=== PATIENT | female | born 1995 | race Caucasian/White ===

== ENCOUNTER 2017-08-02 23:57 | Emergency (ER) | payer OTHER ==
[~2017-08-02] VITALS: Ht 162.6 cm; Wt 88.5 kg
[~2017-08-02 23:57] MED LIST: ONE DAILY MULT1 EAC1 PO; TRAMADOL HCL50 MG PO
[2017-08-03] MEDS ORDERED: VENTOLIN HFA18 GM INH (00:31)
[2017-08-03] MEDS ORDERED: MYRBETRIQ25 MG PO (00:32)
[2017-08-03] MEDS ORDERED: ZOFRAN ODT4 MG PO (03:36)
[2017-08-03] MEDS ORDERED: PROTONIX40 MG PO (03:36)
== END 2017-08-03 03:50 | disposition home or self-care (01) ==
LOC: ED 23:57
DX: K29.00 Acute gastritis without bleeding (principal); J45.909 Unspecified asthma, uncomplicated; F17.200 Nicotine dependence, unspecified, uncomplicated; Z90.89 Acquired absence of other organs; Z79.899 Other long term (current) drug therapy
CPT/HCPCS: 76705; 80053; 81001; 83690; 84703; 85025; 96374; 96375; 99284; J1170; J2405; J7030

== ENCOUNTER 2019-08-15 22:45 | Emergency (ER) | payer OTHER ==
[~2019-08-15] VITALS: Ht 162.6 cm; Wt 90.7 kg
--- OUTSIDE RECORDS SUMMARY | ~2019-08-15 | XMS | Encounter Summary ---
Demographics + + + | Address | [address] | | | [place] [address] | + + + | Home Phone | | + + + | Preferred Language | Unknown | + + + | Marital Status | Single | + + + | Rastafarian Affiliation | Unknown | + + + | Race | Unknown | + + + | Ethnic Group | Unknown | + + + Author + + + | Author | [facility] | | | and [place] | + + + | Organization | [facility] | | | and [place] | + + + | Address | Unknown | + + + | Phone | Unavailable | + + + Support + + +---------+ + | Name | Relationship | Address | Phone | + + +---------+ + | Quinten Lion | ECON | Unknown | | + + +---------+ + Care Team Providers + +------+ + | Care Lever Miller Name | Role | Phone | + +------+ + | Geni Johnson NP | PCP | | + +------+ + Reason for Visit + + + | Reason | Comments | + + + | Care | | + + + Encounter Details +--------+---------+ + + + | Date | Type | Department | Care Team | Description | +--------+---------+ + + + | 06/06/ | Office | [facility] | Sidney Longoria | care | | 2019 | Visit | [facility] | [facility] [address] | following vaginal | | | | [facility] | [address] | delivery (Primary | | | | [address] | [place] [address] | Dx); Encounter for | | | | [address] [place], | [phone] | contraceptive | | | | [place] [address] | | management, | | | | [phone] | | unspecified type | +--------+---------+ + + + Social History + +-------+ +--------+------+ | Tobacco Use | Types | Packs/Day | Years | Date | | | | | Used | | + +-------+ +--------+------+ | Former Smoker | | | | | + +-------+ +--------+------+ + +---+---+---+ | Smokeless Tobacco: | | | | | Never Used | | | | + +---+---+---+ + + | Tobacco Cessation: Counseling Given: Yes | + + + + +---------+ + | Alcohol Use | Drinks/We | oz/Week | Comments | | | ek | | | + + +---------+ + | Not Currently | | | | + + +---------+ + + + + | Sex Assigned at | Date Recorded | | | | + + + | Not on file | | + + + + + + + | Job Start Date | Occupation | Industry | + + + + | Not on file | Not on file | Not on file | + + + + + + + + | Travel History | Travel Start | Travel End | + + + + + + | No recent travel history available. | + + documented as of this encounter Last Filed Vital Signs + + + + | Vital Sign | Reading | Time Taken | + + + + | Blood Pressure | 100/64 | 06/06/2019 1406 PDT | + + + + | Pulse | 74 | 06/06/2019 1406 PDT | + + + + | Temperature | - | - | + + + + | Respiratory Rate | - | - | + + + + | Oxygen Saturation | 100% | 06/06/20191405 PDT | + + + + | Inhaled Oxygen | - | - | | Concentration | | | + + + + | Weight | 89.8 kg (198 lb) | 06/06/20191405 PDT | + + + + | Height | - | - | + + + + | Body Mass Index | 33.99 | 04/27/2019 1100 PDT | + + + + documented in this encounter Progress Notes Carmel Durant, Wood Caulker - 06/06/2019 1340 PDT Subjective: Patient ID: Georgina Gandara is a 24 y.o. female HPI Georgina is a who presents for a visit. She is 6 weeks following a spontaneous vaginal delivery by: Dr. Lyon. course has been good. Baby is . Bleeding: no bleeding. Bowel function is normal. Bladder function is normal. Patient has been sexually active since delivery. Contraception method is: none. She is interested in beginning contraception today, and prefers: condoms. 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 The patient has not completed the HPV vaccination series. Buchanan Depression Scale: Total score 0 (06/06/191402) [ Printable questionnaire in Simplified Honduran, Traditional Honduran, Beninese, Niuean, Bernard ali, Persian, Ukrainian ] Interpretation of Total Score: < 8 = depression unlikely, 9 11 = possible depression (re- screen in 2 4 weeks), 12 13 = fairly high possibility of depression (monitor, support, e ducate, refer if needed), 14+ = probable depression (assess and treat by PCP or specialist) Positive score (1, 2 or 3) on question 10 = evaluate for suicidality 1. 1. Able To Laugh: 0-->as much as she always could (06/06/191402) 2. 2. Looked Forward: 0-->as much as she ever did (06/06/191402) 3. 3. Blamed Self: 0-->no, never (06/06/191402) 4. 4. Been Anxious: 0-->no, not at all (06/06/191402) 5. 5. [place] Panicky: 0-->no, not at all (06/06/191402) 6. 6. Things Getting On Top: 0-->no, has been coping as well as ever (06/06/191402) 7. 7. Difficulty Sleepin-->no, not at all (06/06/191402) 8. 8. Sad Or Miserable: 0-->no, not at all (06/06/191402) 9. 9.Cryin-->no, never (06/06/191402) 10. 10. Thought Of Harming Self: 0-->never (06/06/191402) Concerns noted: none Patient's medications, allergies, past medical, surgical, social and family histories were obtained and reviewed as appropriate. Review of Systems Constitutional: Negative for activity change, appetite change, chills, diaphoresis, fever a nd unexpected weight change. Respiratory: Negative for cough and shortness of breath. Cardiovascular: Negative for chest pain and leg swelling. Gastrointestinal: Negative for abdominal pain and blood in stool. Genitourinary: Negative for dyspareunia, dysuria, hematuria, menstrual problem, pelvic pain , vaginal bleeding, vaginal discharge and vaginal pain. Neurological: Negative for syncope, speech difficulty, weakness, numbness and headaches. Objective: BP 100/64 | Pulse 74 | Wt 89.8 kg (198 lb) | SpO2 100% | ? Yes | BMI 33.9 9 kg/m Physical Exam Constitutional: She is oriented to person, place, and time. She appears well-developed and well-nourished. Genitourinary: Vagina normal and uterus normal. Pelvic exam was performed with patient jasoni ne. There is no rash, tenderness, lesion or injury on the right labia. There is no rash, ten derness, lesion or injury on the left labia. Uterus is not enlarged and not tender. Cervix e xhibits no motion tenderness and no discharge. No erythema, tenderness or bleeding in the va zully. No foreign body in the vagina. No signs of injury around the vagina. No vaginal discha rge found. Neurological: She is alert and oriented to person, place, and time. Skin: Skin is warm and dry. Psychiatric: She has a normal mood and affect. Her behavior is normal. Judgment and thought content normal. Assessment/Plan: Georgina was seen today for care. Diagnoses and all orders for this visit: care following vaginal delivery - Overall doing well. Normal evaluation. - Counseled about exercise and nutrition. - Patient was advised regarding annual examinations, including pap smear frequency. - Follow up annually. Encounter for contraceptive management, unspecified type - Briefly discussed the risks and benefits of contraceptive options, including the pill, pa tch, ring, injection, implant, and IUD. - She is interested in tubal ligation and she plans to complete this in [place], condoms until then which are available without a prescription. I, Dr. Longoria, personally performed the services described in this documentation, as sc ribed by ANSHUL Voss in my presence, and it is both accurate and complete. Electron ically signed by Sidney Longoria MD at 06/13/2019 15:41 PDTClCarmel richey, Medical Ass istant - 06/06/2019 1340 PDT Ancillary Note Patient ID: Georgina Gandara is a 24 y.o. female She is 6 weeks following a spontaneous vaginal delivery by Dr. Lyon. BP 100/64 | Pulse 74 | Wt 89.8 kg (198 lb) | SpO2 100% | ? Yes | BMI 33.9 9 kg/m Review of Systems Constitutional: Negative for activity change, appetite change, chills, diaphoresis, fever a nd unexpected weight change. Respiratory: Negative for cough and shortness of breath. Cardiovascular: Negative for chest pain and leg swelling. Gastrointestinal: Negative for abdominal pain and blood in stool. Genitourinary: Negative for dyspareunia, dysuria, hematuria, menstrual problem, pelvic pain , vaginal bleeding, vaginal discharge and vaginal pain. Neurological: Negative for syncope, speech difficulty, weakness, numbness and headaches. Recommendations from Health Maintenance / Immunizations Due: Health Maintenance Due Topic Vaccine: Dtap/Tdap/Td (1 - Tdap) Specialty Comments on SnapShot: No specialty comments available. Patient Care Team: Geni Johnson NP as PCP - General Pap smear history: last pap: was normal. The patient denies a history of abnormal pap smear s. The patient is sexually active. Contraception: no method. Buchanan Depression Scale: Total score 0 (08/26/19 1403) [ Printable questionnaire in Simplified Honduran, Traditional Honduran, Beninese, Niuean, Bernard ali, Persian, Ukrainian ] Interpretation of Total Score: < 8 = depression unlikely, 9 11 = possible depression (re- screen in 2 4 weeks), 12 13 = fairly high possibility of depression (monitor, support, e ducate, refer if needed), 14+ = probable depression (assess and treat by PCP or specialist) Positive score (1, 2 or 3) on question 10 = evaluate for suicidality 1. 1. Able To Laugh: 0-->as much as she always could (06/06/191402) 2. 2. Looked Forward: 0-->as much as she ever did (06/06/191402) 3. 3. Blamed Self: 0-->no, never (06/06/191402) 4. 4. Been Anxious: 0-->no, not at all (06/06/191402) 5. 5. [place] Panicky: 0-->no, not at all (06/06/191402) 6. 6. Things Getting On Top: 0-->no, has been coping as well as ever (06/06/191402) 7. 7. Difficulty Sleepin-->no, not at all (06/06/191402) 8. 8. Sad Or Miserable: 0-->no, not at all (06/06/191402) 9. 9.Cryin-->no, never (06/06/191402) 10. 10. Thought Of Harming Self: 0-->never (06/06/191402) documen chuyita in this encounter Plan of Treatment Not on filedocumented as of this encounter Visit Diagnoses + + | Diagnosis | + + | care following vaginal delivery - Primary Routine follow-up | + + | Encounter for contraceptive management, unspecified type | + + documented in this encounter"
--- OUTSIDE RECORDS SUMMARY | ~2019-08-15 | XMS | Clinical Summary ---
Demographics + + + | Address | [address] | | | [place] [address] | + + + | Home Phone | | + + + | Preferred Language | Unknown | + + + | Marital Status | Single | + + + | Uatsdin Affiliation | Unknown | + + + | Race | Unknown | + + + | Ethnic Group | Unknown | + + + Author + + + | Author | [facility] (Historical as of | | | 05-28-19) | + + + | Organization | [facility] (Historical as of | | | 05-28-19) | + + + | Address | Unknown | + + + | Phone | Unavailable | + + + Support + + +---------+ + | Name | Relationship | Address | Phone | + + +---------+ + | Quinten Lion | ECON | Unknown | | + + +---------+ + Care Team Providers + +------+ + | Care Material Checker Name | Role | Phone | + +------+ + | Geni JohnsonP | PP | Unavailable | + +------+ + Allergies No Known Allergies Current Medications + + +--------+---------+------+------+-------+ | Prescription | Sig. | Disp. | Refills | Star | End | Statu | | | | | | t | Date | s | | | | | | Date | | | + + +--------+---------+------+------+-------+ | | Take by mouth | | | | | Activ | | Vit-DSS-Fe Cbn-FA | daily. | | | | | e | | (PRENACARE PO) | | | | | | | + + +--------+---------+------+------+-------+ | oxyCODONE | Take 1 tablet by | 15 | 0 | 07/1 | | Activ | | (ROXICODONE) 5 MG | mouth every 4 (four) | tablet | | 7/20 | | e | | immediate release | hours as needed for | | | 19 | | | | tablet | Pain (Moderate or | | | | | | | | severe pain. If | | | | | | | | oxycodone is | | | | | | | | ineffective, call | | | | | | | | provider for | | | | | | | | Hydrocodone order.). | | | | | | + + +--------+---------+------+------+-------+ Active Problems + + + | Problem | Noted Date | + + + | , delivered | 04/26/2019 | + + + | GBS (group B Streptococcus carrier), +RV culture, currently | 04/05/2019 | | | | + + + + + | Overview: Not penicillin allergic | + + + + + | Abnormal ultrasound | 02/22/2019 | + + + | complicated by cerebral ventriculomegaly | 02/22/2019 | + + + + + | Overview: April 11, 2019. Apparent resolution of | | ventriculomegaly which has been under the actual cut off of 10 | | mm. Measurements were 8 & 9 mm at 36 wks (< 10 mm cutoff for dx | | Ventriculomegaly). Peds to be notified at delivery. | + + + + + | Anemia during in third trimester | 02/22/2019 | + + + | Desires (vaginal after ) trial | 12/28/2018 | + + + + + | Overview: Prior LT, [facility] April 11, 2019 times | | scheduled just in case she does not spontaneously labor. | + + + + + | with care elsewhere, antepartum | 11/29/2018 | + + + | Previous section complicating | 11/29/2018 | + + + + + | Overview: October 12, 2018. NETO, consent was signed February 12 | | by the patient and Ivanna DUEÑAS, patient still wishes to have a | | vaginal , at this time her cervix is unfavorable, | | section scheduled just to reserve a spot in case she does not | | spontaneously labor | + + Resolved Problems + + + + | Problem | Noted | Resolved | | | Date | Date | + + + + | Overactive bladder | 07/20/20 | | | | 17 | 9 | + + + + Family History + + +------+ + | Medical History | Relation | Name | Comments | + + +------+ + | Brain cancer | Brother | | 16 | + + +------+ + | ADD / ADHD | Brother | | | + + +------+ + | Mental retardation | Brother | | | + + +------+ + | Melanoma | Father | | | + + +------+ + | Heart disease | Mother | | [place] | + + +------+ + | Hypertension | Mother | | | + + +------+ + | Stroke | Mother | | | + + +------+ + | Breast cancer | Neg Hx | | | + + +------+ + | Diabetes type I | Neg Hx | | | + + +------+ + | Diabetes type II | Neg Hx | | | + + +------+ + | Heart defect | Neg Hx | | | + + +------+ + | Uterine cancer | Neg Hx | | | + + +------+ + + +------+ + + | Relation | Name | Status | Comments | + +------+ + + | Brother | | | | + +------+ + + | Brother | | Alive | | + +------+ + + | Brother | | Alive | | + +------+ + + | Father | | Alive | | + +------+ + + | Maternal Grandfather | | Alive | | + +------+ + + | Maternal Grandmother | | Alive | | + +------+ + + | Mother | | Alive | | + +------+ + + | Paternal Grandfather | | Alive | | + +------+ + + | Paternal Grandmother | | Alive | | + +------+ + + | Sister | | Alive | | + +------+ + + | Sister | | Alive | | + +------+ + + Social History + +-------+ +--------+ + | Tobacco Use | Types | Packs/Day | Years | Date | | | | | Used | | + +-------+ +--------+ + | Former Smoker | | | | Quit: 08/08/2018 | + +-------+ +--------+ + + +---+---+---+ | Smokeless Tobacco: | | | | | Never Used | | | | + +---+---+---+ + + +---------+ + | Alcohol Use | Drinks/We | oz/Week | Comments | | | ek | | | + + +---------+ + | No | | | | + + +---------+ + + + + | Sex Assigned at | Date Recorded | | | | + + + | Not on file | | + + + Last Filed Vital Signs + + + + | Vital Sign | Reading | Time Taken | + + + + | Blood Pressure | 127/74 | 04/27/2019 8:45 AM PDT | + + + + | Pulse | 80 | 04/27/2019 8:45 AM PDT | + + + + | Temperature | 36.9 C (98.5 F) | 04/27/2019 8:45 AM PDT | + + + + | Respiratory Rate | 16 | 04/27/2019 8:45 AM PDT | + + + + | Oxygen Saturation | 98% | 04/26/2019 7:34 AM PDT | + + + + | Inhaled Oxygen | - | - | | Concentration | | | + + + + | Weight | 96.6 kg (212 lb 15.4 | 04/25/2019 11:29 AM PDT | | | oz) | | + + + + | Height | 162.6 cm (5' 4") | 04/25/2019 11:29 AM PDT | + + + + | Body Mass Index | 36.56 | 04/25/2019 11:29 AM PDT | + + + + Plan of Treatment + + + + + | Health Maintenance | Due Date | Last Done | Comments | + + + + + | Vaccine: HPV (1 - | | | | | Female 3-dose | 8 | | | | series) | | | | + + + + + | Vaccine: | | | | | Dtap/Tdap/Td (1 - | 2 | | | | Tdap) | | | | + + + + + | Vaccine: Influenza | | | | | (#1) | 9 | | | + + + + + | Cervical Cancer | | 01/12/2018 | | | Screening (Pap) | 1 | | | + + + + + Results Not on filefrom Last 3 Months Insurance + +--------+ +------+-------+ + | Payer | Benefi | Subscriber | Type | Phone | Address | | | t Plan | ID | | | | | | / | | | | | | | Group | | | | | + +--------+ +------+-------+ + | MEDICAID | THO | [id number] | | | [address] | | | N | | | | [place] | | | [place] | | | | [address] | | | HOSPITAL DIRECTOR | | | | | + +--------+ +------+-------+ + + +--------+ +--------+ + + | Guarantor Name | Accoun | Relation to | Date | Phone | Billing Address | | | t Type | Patient | of | | | | | | | | | | + +--------+ +--------+ + + | BIANKA GANDARA | Person | Self [birth year] | Home: | [address] | [address] | [place] | | 1994 | [phone] | [place] [address] | | | madai | | | [phone] | | + +--------+ +--------+ + +
--- OUTSIDE RECORDS SUMMARY | ~2019-08-15 | XMS | Encounter Summary ---
Demographics + + + | Address | [address] | | | [place] [address] | + + + | Home Phone | | + + + | Preferred Language | Unknown | + + + | Marital Status | Single | + + + | Temple Affiliation | Unknown | + + + | Race | Unknown | + + + | Ethnic Group | Unknown | + + + Author + + + | Author | [facility] | | | and [place] | + + + | Organization | [facility] | | | and [place] [...] Team Providers + +------+ + | Care Grain Mixer Name | Role | Phone | + [...] + + | 06/06/ | Office | [facility] | Sidney Longoria | care | | 2019 | Visit | [facility] | [facility] [address] | following vaginal | | | | [facility] | [address] | delivery (Primary | | | | [address] | [place] [address] | Dx); Encounter for | | | | [address] [place], | [phone] | contraceptive | | | | [place] [address] | | management, | | | | [phone] | | unspecified type | +--------+---------+ + [...] in this encounter Progress Notes Carmel Durant, Segment Assembler - 06/06/2019 1340 PDT Subjective: Patient ID: [...] in beginning contraception today, and prefers: condoms. 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 The patient has not completed the HPV vaccination series. Luther Depression Scale: Total score 0 (06/06/191402) [ Printable questionnaire in Simplified Mexican, Traditional Mexican, New Zealander, Botswanan, Bernard ali, Japanese, Kittitian ] Interpretation of Total Score: < 8 [...] 0-->no, not at all (06/06/191402) 5. 5. [place] Panicky: 0-->no, not at all (06/06/191402) 6. [...] this documentation, as sc ribed by ANSHUL oVss in my presence, and it is both [...] patient is sexually active. Contraception: no method. Luther Depression Scale: Total score 0 (08/26/19 1403) [ Printable questionnaire in Simplified Mexican, Traditional Mexican, New Zealander, Botswanan, Bernard ali, Japanese, Kittitian ] Interpretation of Total Score: < 8 [...] 0-->no, not at all (06/06/191402) 5. 5. Lebeau Panicky: 0-->no, not at all (06/06/191402) 6. [...]
--- OUTSIDE RECORDS SUMMARY | ~2019-08-15 | XMS | Clinical Summary ---
Demographics + + + | Address | [address] | | | [place] [address] | + + + | Home Phone | | + + + | Preferred Language | Unknown | + + + | Marital Status | Single | + + + | Presybeterian Affiliation | Unknown | + + + | Race | Unknown | + + + | Ethnic Group | Unknown | + + + Author + + + | Author | [facility] | | | and [place] | + + + | Organization | [facility] | | | and [place] [...] Team Providers + +------+ + | Care Stair Builder Name | Role | Phone | + +------+ + | Geni Johnson RECREATION MANAGER | PCP | | + +------+ + Allergies No Known Allergies Medications + + + +---------+------+------+-------+ | Medication | Sig | Dispensed | Refills | Star | End | Statu | | | | | | t | Date | s | | | | | | Date | | | + + + +---------+------+------+-------+ | oxyCODONE | Take 1 tablet by | 15 | 0 | 07/1 | | Activ | | (ROXICODONE) 5 mg | mouth every 4 (four) | tablet | | 7/20 | | e | | tablet | hours as needed for | | | 19 | | | | | Pain (Moderate or | | | | | | | | severe pain. If | | | | | | | | oxycodone is | | | | | | | | ineffective, call | | | | | | | | provider for | | | | | | | | Hydrocodone order.). | | | | | | + + + +---------+------+------+-------+ | | Take by mouth | | 0 | 11/12 | | Activ | | VIT-DSS-FE CBN-FA PO | daily. | | | 05/31 | | e | | | | | | 19 | | | + + + +---------+------+------+-------+ Active Problems + + + | Problem | Noted Date | + + + | Encounter for contraceptive management | 06/13/2019 | + + + + + | Overview: She is interested in tubal ligation and she plans | | to complete this in [place] [facility] until then which are | | available without a prescription. | + + Resolved Problems + + + + | Problem | Noted | Resolved | | | Date | Date | + + + + | , delivered | 04/26/20 | | | | 19 | 9 | + + + + | GBS (group B Streptococcus carrier), +RV culture, currently | 04/05/20 | | | | 19 | 9 | + + + + + + | Overview: Not penicillin allergic | + + + + + + | Abnormal ultrasound | 02/23/20 | | | | 19 | 9 | + + + + | complicated by cerebral ventriculomegaly | 02/23/20 | | | | 19 | 9 | + + + + + + | Overview: April 11, 2019. Apparent resolution of | | ventriculomegaly which has been under the actual cut off of 10 | | mm. Measurements were 8 & 9 mm at 36 wks (< 10 mm cutoff for dx | | Ventriculomegaly). Peds to be notified at delivery. | + + + + + + | Anemia during in third trimester | 02/23/20 | | | | 19 | 9 | + + + + | Desires (vaginal after ) trial | 12/29/19 | | | | 19 | 9 | + + + + + + | Overview: Prior LTCS, NRFHT April 11, 2019 times | | scheduled just in case she does not spontaneously labor. | + + + + + + | with care elsewhere, antepartum | 11/29/19 | | | | 19 | 9 | + + + + | Previous section complicating | 11/29/19 | | | | 19 | 9 | + + + + + + | Overview: October 12, 2018. TOLAC, consent was signed February 12 | | by the patient and Ivanna Barnes LEANA, patient still wishes to have a | | vaginal , at this time her cervix is unfavorable, | | section scheduled just to reserve a spot in case she does not | | spontaneously labor | + + Encounters +--------+---------+ + + + | Date | Type | Specialty | Care Team | Description | +--------+---------+ + + + | 06/06/ | Office | Obstetrics and | Sidney Longoria | care | | 2019 | Visit | Gynecology | MD Madhu | following vaginal | | | | | | delivery (Primary | | | | | | Dx); Encounter for | | | | | | contraceptive | | | | | | management, | | | | | | unspecified type | +--------+---------+ + + + from Last 3 Months Family History + + +------+ + | Medical History | Relation | Name | Comments | + + +------+ + | Brain cancer | Brother | | 16 | + + +------+ + | ADD/ADHD | Brother | | | + + +------+ + | Mental retardation | Brother | | | + + +------+ + | Other (see comment) | Father | | Melanoma | + + +------+ + | Heart disease | Mother | | [place] | + + +------+ + | Hypertension | Mother | | | + + +------+ + | Stroke | Mother | | | + + +------+ + | Breast cancer | Neg Hx | | | + + +------+ + | Diabetes, IDDM | Neg Hx | | | + + +------+ + | Diabetes, NIDDM | Neg Hx | | | + [...] +------+ + + Social History + +-------+ +--------+------+ [...] recent travel history available. | + + Last Filed Vital Signs + + + + | Vital Sign | Reading | Time Taken | + + + + | Blood Pressure | 100/64 | 06/06/2019 1406 PDT | + + + + | Pulse | 74 | 06/06/20191405 PDT | + + + + | Temperature | 36.9 C (98.5 F) | 04/27/20191099 PDT | + + + + | Respiratory Rate | 16 | 04/27/20191099 PDT | + + + + | Oxygen Saturation | 100% | 06/06/20191405 PDT | + + + + | Inhaled Oxygen | - | - | | Concentration | | | + + + + | Weight | 89.8 kg (198 lb) | 06/06/20191405 PDT | + + + + | Height | 162.6 cm (5' 4") | 04/27/2019 1100 PDT | + + + + | Body Mass Index | 33.99 | 04/27/20191099 PDT | + + + + Plan [...] filefrom Last 3 Months Insurance + +--------+ +--------+ +---------+--------+ | Payer | Benefi | Subscriber | Effect | Phone | Address | Type | | | t Plan | ID | charles | | | | | | / | | Dates | | | | | | Group | | | | | | + +--------+ +--------+ +---------+--------+ | [employer] | [employer] | [id number] | 05/16/20 | [phone] | | Medica | | MEDICAID HMO | HEALTH | | 19-Pre | 1 | | id | | | MDCD | | sent | | | | | | HMO [place] | | | | | | + +--------+ +--------+ +---------+--------+ + +--------+ +--------+ + + | Guarantor Name | Accoun | Relation to | Date | Phone | Billing Address | | | t Type | Patient | of | | | | | | | | | | + +--------+ +--------+ + + | Georgina Gandara | Person | Self [birth year] | [address] | | [place] | [place] | | 1995 | [phone] | [place] [address] | | | madai | | | 9 (Home) | | + +--------+ +--------+ + + Advance Directives Patient has advance care planning documents on file. For more information, please contact:Julio C [facility] [address]
--- OUTSIDE RECORDS SUMMARY | ~2019-08-15 | XMS | Clinical Summary ---
Demographics + + + | Address | [address] | | | [place] [address] | + + + | Home Phone | | + + + | Preferred Language | Unknown | + + + | Marital Status | Single | + + + | Latter-Day Affiliation | Unknown | + + + | Race | Unknown | + + + | Ethnic Group | Unknown | + + + Author + + + | Author | [facility] (Historical as of | | | 05-28-19) | + + + | Organization | [facility] (Historical as of | | | 05-28-19) [...] Team Providers + +------+ + | Care Portal Architect Name | Role | Phone | + [...] + + + | Overview: Prior LT, [facility] April 11, 2019 times | | scheduled [...] | Heart disease | Mother | | [place] | + + +------+ + | Hypertension [...] +------+-------+ + | MEDICAID | THO | [id number] | | | [address] | | | N | | | | [place]ER | | | [place] | | | | [phone] | | | 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
--- OUTSIDE RECORDS SUMMARY | ~2019-08-15 | XMS | Clinical Summary ---
Demographics + + + | Address | [address] | | | [place] [address] | + + + | Home Phone | | + + + | Preferred Language | Unknown | + + + | Marital Status | Single | + + + | Mormon Affiliation | Unknown | + + + | Race | Unknown | + + + | Ethnic Group | Unknown | + + + Author + + + | Author | [facility] | | | and [place] | + + + | Organization | [facility] | | | and [place] [...] Team Providers + +------+ + | Care Burr Grinder Name | Role | Phone | + +------+ + | Geni Johnson GUIDE PLANT | PCP | | + +------+ + [...] plans | | to complete this in [place] [facility] until then which are | | available [...] | Heart disease | Mother | | MD | + + +------+ + | Hypertension [...] | [employer] | [employer] | [id number] | 05/16/20 | [phone] | | Medica [...] [place] | [place] | | 1995 | [phone] | [place] [address] | | | madai | | | 9 (Home) | | + +--------+ +--------+ + + Advance Directives Patient has advance care planning documents on file. For more information, please contact:Julio C [facility] [place] [address]
[~2019-08-15 22:45] MED LIST changes: +MYRBETRIQ25 MG PO; +PROTONIX40 MG PO; +VENTOLIN HFA18 GM INH; +ZOFRAN ODT4 MG PO
[2019-08-15] MEDS ORDERED: PRENATABS FA T1 EACH PO (22:58)
[2019-08-15] MEDS ORDERED: UNISOM50 MG PO (22:59)
[2019-08-15] MEDS ORDERED: MAPAP500 MG PO (22:59)
[2019-08-15] MEDS ORDERED: PERCOCET 5-3251 EACH PO (23:38)
== END 2019-08-15 23:45 | disposition home or self-care (01) ==
LOC: ED 22:45
DX: O99.89 Other specified diseases and conditions complicating pregnancy, childbirth and the puerperium (principal); M25.561 Pain in right knee; M25.562 Pain in left knee; Z87.891 Personal history of nicotine dependence; O99.511 Diseases of the respiratory system complicating pregnancy, first trimester; J45.909 Unspecified asthma, uncomplicated; Z79.899 Other long term (current) drug therapy; Z3A.10 10 weeks gestation of pregnancy
CPT/HCPCS: 99283

== ENCOUNTER 2024-07-18 17:47 | Emergency (ER) | payer OTHER ==
[~2024-07-18] VITALS: Ht 162.6 cm; Wt 81.7 kg
[~2024-07-18 17:47] MED LIST changes: +MAPAP500 MG PO; +PERCOCET 5-3251 EACH PO; +PRENATABS FA T1 EACH PO; +UNISOM50 MG PO
[2024-07-18] MEDS ORDERED: SODIUM CHLORIDE 0.9% 1,000 ML IV ONE (18:00)
[2024-07-18] MEDS ORDERED: HYDROmorphone HCL 1 MG/ML SYR IV ONE (18:00)
[2024-07-18] MEDS ORDERED: ondansetron HCL 4 MG/2 ML VIAL IV PRN (18:00)
[2024-07-18 18:12] LABS: HEMATOCRIT 43.1 % (35.0-50.0); HEMOGLOBIN 15.5 g/dL (12.0-18.0); MCH 34.2 (27-36); MCHC 35.8 g/dl (30-36); MCV 95.4 fl (81-99); PLATELET COUNT 186 K/uL (140-440); RBC 4.52 M/ul (4.3-5.7); RDW 13.2 (10.5-15.0)
[2024-07-18 18:25] LABS: ALBUMIN 3.6 g/dL (3.4-5.0); ALBUMIN/GLOBULIN RATIO 0.77 (1.1-2.4); ALKALINE PHOSPHATASE 151 U/L (46-116); ALT (SGPT) 48 U/L (14-59); ANION GAP 15.3 (7-21); AST (SGOT) 38 U/L (15-37); BILIRUBIN, TOTAL 1.7 ng/dL (0.2-1.0); CALCIUM 9.7 mg/dL (8.5-10.1); CARBON DIOXIDE 24 mmol/L (21-32); CHLORIDE 97 mmol/L (98-107); CREATININE, SERUM 1.11 mg/dL (0.55-1.02); GLOMERULAR FILTRATION RATE,EST 68 mL/min (>60); POTASSIUM 4.3 mmol/L (3.5-5.1); PROTEIN, TOTAL 8.3 g/dL (6.4-8.2); UREA NITROGEN 11 mg/dL (7-18)
[2024-07-18 18:27] LABS: LYMPHOCYTES, MANUAL DIFF 8; MONOCYTES, MANUAL DIFF 11; NEUTROPHILS, MANUAL DIFF 81
[2024-07-18 19:08] LABS: BILIRUBIN, URINE POSITIVE (negative); BLOOD/HGB, URINE TRACE-I (Negative); KETONE, URINE SMALL (Negative); LEUK ESTERASE, URINE TRACE (negative); NITRITE, URINE NEGATIVE (negative)
[2024-07-18 19:18] LABS: BACTERIA, URINE NONE SEEN /hpf (negative); CASTS, URINE NONE SEEN \\lpf; COLLECTION TYPE, URINE CLEAN CATCH; CRYSTALS, URINE NONE SEEN (0-1+); EPITHELIAL CELLS, URINE SQUAMOUS 3+ /lpf (0-1+); RED BLOOD CELLS, URINE 0-1 /hpf (0-5); REFLEX CULTURE, URINE No (No)
[2024-07-18] MEDS ORDERED: FLOMAX0.4 MG PO (20:10)
[2024-07-18] MEDS ORDERED: ONDANSETRON ODT8 MG PO (20:10)
[2024-07-18] MEDS ORDERED: CEFDINIR300 MG PO (20:10)
[2024-07-18] MEDS ORDERED: PERCOCET 5-3251 EACH PO (20:10)
[2024-07-18] MEDS ORDERED: ONDANSETRON 4 MG HOME.PACK SL ONE (20:15)
[2024-07-18] MEDS ORDERED: OXYCODONE/ACETAMINOPHEN 1 TAB HOME.PACK PO ONE (20:15)
[2024-07-18] MEDS ORDERED: CEFDINIR 300 MG HOME.PACK PO ONE (20:15)
[2024-07-18] MEDS ORDERED: TAMSULOSIN HCL 0.4 MG CAP PO ONE (20:15)
[2024-07-18 20:25] VITALS: BP 118/79
== END 2024-07-18 20:25 | disposition home or self-care (01) ==
LOC: ED 17:47
PROVIDERS: Emergency Medicine
DX: N13.2 Hydronephrosis with renal and ureteral calculous obstruction (principal); J45.909 Unspecified asthma, uncomplicated; Z87.891 Personal history of nicotine dependence
CPT/HCPCS: 36415; 74176; 80053; 81001; 84702; 85025; 96374; 96375; 99284-25; A9270; J1170; J2405; J7030

== ENCOUNTER 2025-01-15 10:09 | Emergency (ER) | payer OTHER ==
[~2025-01-15] VITALS: Ht 162.6 cm; Wt 80.0 kg
[~2025-01-15 10:09] MED LIST changes: +CEFDINIR300 MG PO; +FLOMAX0.4 MG PO; +ONDANSETRON ODT8 MG PO
[2025-01-15] MEDS ORDERED: HYDROCODONE/ACETA 5/325 TAB PO ONE (10:30)
[2025-01-15] MEDS ORDERED: DIPHTH,PERTUSS(ACELL),TET VAC 0.5 ML SYRINGE IM ONE (10:30)
[2025-01-15] MEDS ORDERED: IBUPROFEN 600 MG TAB PO ONE (10:30)
[2025-01-15 11:05] VITALS: BP 113/84
== END 2025-01-15 11:05 | disposition home or self-care (01) ==
LOC: ED 10:09
DX: S01.81XA Laceration without foreign body of other part of head, initial encounter (principal); V00.848A Other accident with standing micro-mobility pedestrian conveyance, initial encounter; J45.909 Unspecified asthma, uncomplicated; Z23 Encounter for immunization; Z87.891 Personal history of nicotine dependence
CPT/HCPCS: 12011; 90471; 90715; 99284-25; A9270